=== PATIENT | female | born 1960 | race American Indian/Alaskan Native ===

== ENCOUNTER 2021-11-14 03:27 | Emergency (ER) | payer OTHER ==
[2021-11-14 04:12] VITALS: BP 138/70
[2021-11-14 09:11] LABS: Hematocrit 47.5 % (30.3-42.9); Hemoglobin 15.9 gm/dl (10.1-14.3); Mean Platelet Volume 9.3 fl (6-12); Red Blood Count 5.21 M/mm3 (3.65-5.03); Red Cell Distribution Width 12.2 % (13.2-15.2)
[2021-11-14 09:52] LABS: Alanine Aminotransferase 15 units/L (7-56); BUN/Creatinine Ratio 18; Blood Urea Nitrogen 11 mg/dL (7-17); Calcium 9.9 mg/dL (8.4-10.2)
[2021-11-14 09:53] LABS: Albumin 4.3 g/dL (3.9-5); Hemolysis Index 3
[2021-11-14 10:54] LABS: Mucus,Urine FEW /HPF; RBC,Urine < 1.0 /HPF (0.0-6.0); WBC,Urine < 1.0 /HPF (0.0-6.0)
[2021-11-14 11:08] LABS: Color,Urine Colorless (Yellow)
--- NOTE | 2021-11-14 11:19 | Emergency Department Report ---
ED Dysuria HPI - HPI Chief Complaint: Abdominal Pain Stated Complaint: SIDE AND ABDOMINAL PAIN Time Seen by Provider: 11/14/21 09:21 Duration: 3 Days Location of Discomfort: Suprapubic Severity: Mild Symptoms: Dysuria: Yes, Frequency: No, Suprapubic Pain: No, Flank Pain: No, Fever: No, Hematuria: No, Abdominal Pain: No, Previous UTI's: Yes Other History: 61 YO COMES IN WITH SUPRAPUBIC PAIN AND DYSURIA FOR 3 DAYS. NO FEVER. NO CHILLS. NON TOXIC IN EXAM. HOME RX. SYNTHROID ED Review of Systems ROS: Stated complaint: SIDE AND ABDOMINAL PAIN Other details as noted in HPI Comment: All other systems reviewed and negative ED Past Medical Hx - Past Medical History Previous Medical History?: Yes Additional medical history: HYPOTHYROIDISM - Surgical History Past Surgical History?: No - Family History Family history: no significant - Social History Smoking Status: Never Smoker Substance Use Type: Alcohol - Medications Home Medications: Home Medications Medication Instructions Recorded Confirmed Last Taken Type Sulfamethoxazole/Trimethoprim 1 each PO BID #6 tablet 11/14/21 Unknown Rx [Bactrim DS TAB] Dysuria Exam - Exam General: Vital signs noted. No distress. Alert and acting appropriately. Exam: Yes Moist Mucous Membranes, No CVA Tenderness, No Abdominal Tenderness, No Rigidity or Guarding Labs: Lab Results 11/14/21 11/14/21 11/14/21 Range/Units 08:20 08:20 09:16 WBC 7.4 (4.5-11.0) K/mm3 RBC 5.21 H (3.65-5.03) M/mm3 Hgb 15.9 H (10.1-14.3) gm/dl Hct 47.5 H (30.3-42.9) % MCV 91 (79-97) fl MCH 30 (28-32) pg MCHC 33 (30-34) % RDW 12.2 L (13.2-15.2) % Plt Count 236 (140-440) K/mm3 Sodium 136 L (137-145) mmol/L Potassium 4.4 (3.6-5.0) mmol/L Chloride 98.6 (98-107) mmol/L Carbon Dioxide 30 (22-30) mmol/L Anion Gap 12 mmol/L BUN 11 (7-17) mg/dL Creatinine 0.6 (0.6-1.2) mg/dL Estimated GFR > 60 ml/min BUN/Creatinine Ratio 18 % Glucose 90 (65-100) mg/dL Calcium 9.9 (8.4-10.2) mg/dL Total Bilirubin 0.30 (0.1-1.2) mg/dL AST 19 (5-40) units/L ALT 15 (7-56) units/L Alkaline Phosphatase 95 (35-129) units/L Total Protein 7.3 (6.3-8.2) g/dL Albumin 4.3 (3.9-5) g/dL Albumin/Globulin Ratio 1.4 % Lipase 28 (13-60) units/L Urine Color Colorless (Yellow) Urine Turbidity Clear (Clear) Specific [place] (Man) 1.005 (1.003-1.030) Ur Protein (Man) Negative (Negative) mg/dL Ur Ketones (Man) Negative (Negative) Urine Bilirubin (Man) Negative (Negative) Urine WBC (Auto) < 1.0 (0.0-6.0) /HPF Urine RBC (Auto) < 1.0 (0.0-6.0) /HPF U Epithel Cells (Auto) < 1.0 (0-13.0) /HPF Urine RBC (Manual) Negative (Negative) Urine Mucus Few /HPF ED Course Vital Signs 11/14/21 04:09 Temperature 98.5 F Pulse Rate 50 L Respiratory 20 Rate Blood Pressure 138/70 [Left] O2 Sat by Pulse 100 Oximetry ED Medical Decision Making - Lab Data Result diagrams: 11/14/21 08:20 11/14/21 08:20 - Medical Decision Making Labs 11/14/21 11/14/21 11/14/21 08:20 08:20 09:16 WBC 7.4 RBC 5.21 H Hgb 15.9 H Hct 47.5 H MCV 91 MCH 30 MCHC 33 RDW 12.2 L Plt Count 236 Sodium 136 L Potassium 4.4 Chloride 98.6 Carbon Dioxide 30 Anion Gap 12 BUN 11 Creatinine 0.6 Estimated GFR > 60 BUN/Creatinine Ratio 18 Glucose 90 Calcium 9.9 Total Bilirubin 0.30 AST 19 ALT 15 Alkaline Phosphatase 95 Total Protein 7.3 Albumin 4.3 Albumin/Globulin Ratio 1.4 Lipase 28 Urine Color Colorless Urine Turbidity Clear Specific [place] (Man) 1.005 Ur Protein (Man) Negative Ur Ketones (Man) Negative Urine Bilirubin (Man) Negative Urine WBC (Auto) < 1.0 Urine RBC (Auto) < 1.0 U Epithel Cells (Auto) < 1.0 Urine RBC (Manual) Negative Urine Mucus Few Vital Signs 11/14/21 04:09 Temperature 98.5 F Pulse Rate 50 L Respiratory 20 Rate Blood Pressure 138/70 [Left] O2 Sat by Pulse 100 Oximetry HR 80 ON EXAM EXAM UNREMARKABLE GIVEN CO AND LIMITED UA FINDINGS- CULTURE SENT AND PT BEING TX WITH 3 DAYS BACTRIM. CALL IF WE NEED TO CHANGE MEDS. PT DC HOME WITH DC PLAN OF CARE INCLUDING DIET, MEDS, ACTIVITY AND FOLLOW UP. PT VERBALIZES UNDERSTANDING OF PLAN OF CARE. - Differential Diagnosis TO UTI Critical care attestation.: If time is entered above; I have spent that time in minutes in the direct care of this critically ill patient, excluding procedure time. ED Disposition Clinical Impression: Suprapubic pain, Dysuria Disposition: HOME / SELF CARE / HOMELESS Is pt being admited?: No Does the pt Need Aspirin: No Condition: Stable Instructions: Abdominal Pain, Adult, Abdominal Pain (ED) Additional Instructions: MED ORDERED UNTIL GONE AND FOLLOW UP WITH PCP TO MAKE SURE YOU ARE BETTER REFERRAL BELOW MOTRIN OR TYLENOL FOR PAIN Prescriptions: Sulfamethoxazole/Trimethoprim [Bactrim DS TAB] 1 each PO BID #6 tablet Referrals: KATALINA SUTHERLAND MD [Staff Physician] - 3-5 Days Forms: Work/School Release Form(ED) Time of Disposition: 11:22
== END 2021-11-14 11:50 | disposition home or self-care (01) ==
LOC: ED 03:27
DX: R10.30 Lower abdominal pain, unspecified (principal); R30.0 Dysuria; E03.9 Hypothyroidism, unspecified; Z72.89 Other problems related to lifestyle; Z79.899 Other long term (current) drug therapy
CPT/HCPCS: 36415; 80053; 81001; 83690; 85027; 87086; 99283